=== PATIENT | male | born 1975 | race Two or more races ===

== ENCOUNTER 2024-11-26 11:11 | Outpatient (AMB) | payer OTHER, SELFPAY ==
--- NOTE | 2024-11-26 11:12 | MHC.OFFVIS ---
Vital Signs 11/26/24 11:14 Height 5 ft 8 in Weight 162 lb 8 oz BMI 24.7 BP 122/80 Blood Pressure Location Lt brachial Position Sitting Pulse 87 Pulse Source Pulse Oximeter Pulse Oximetry (%) 96 Oxygen Delivery Method Room Air Intake Visit Reasons: Gout Allergies No Known Allergies Allergy (Verified 11/26/24 11:14) HPI HPI Gout: Details: He had an episode of podagra in 2011 in [place] when he was a resident. He reports that he saw a senior health consultant right away and joint was aspirated. He had crystal proven gout. He had hyperuricemia approx 10 and was started on allopurinol and colchicine. He remained on allopurinol for a year. He then discontinued it on his own. Subsequently had another episode of toe swelling in 2016 involving his left 2nd or 3rd toe. He initially used NSAIDs be then treated it with a steroid course. In May he had an episode of left 2nd toe swelling treated with a course of Decadron 4 mg daily for a few days until joint swelling resolved. His colleague prescribed Decadron. A few weeks ago he had an episode of toe swelling involving his left 2nd toe with pain in his left 3rd toe. He took aleve, colchicine and left ovary Decadron that he had 4 mg b.i.d. for 3 days. Swelling and pain resolved. He has not had any other joint involvement. He reports that each time he has had swelling in his joint it has coincided with a period of stress in his life. No specific trigger. He follows in [place] diet. 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 Managed with diet and exercise. Labs from 09/08/2024 reviewed. [facility] Medical History (Updated 11/26/24 @ 12:57 by Mick Bowden MD) NORMAN (obstructive sleep apnea) Hypertriglyceridemia Fatty liver Gout Surgical History H/O esophagogastroduodenoscopy Physical Exam Vital Signs: Last Vital Signs Pulse 87 11/26/24 11:14 BP 122/80 11/26/24 11:14 Pulse Ox 96 11/26/24 11:14 Oxygen Delivery Method Room Air 11/26/24 11:14 BMI result Body Mass Index 24.7 Const Other: General: Comfortable CVS: RRR Respiratory: clear to auscultation bilaterally. Good respiratory effort Skin: He has hyperpigmentation on a few DIPJ he has bilateral MSK: No tenderness of any joints. No synovitis. No dactylitis. Good range of motion of upper extremities and lower extremities. Assessment & Plan Assessment & Plan (1) Gout: Comment: Crystal proven 2011 when he had an episode of podagra. Subsequently he has had swelling of his left 2nd+/-3rd toe. He recently had an episode, which he self-treated. At this time he is asymptomatic. Recent labs from 09/08/2024 reveal hyperuricemia with mild transaminitis (history of hepatic steatosis wit fluctuating mild transaminitis). I have recommended that he repeat labs this visit. If appropriate, I will then start allopurinol and colchicine. Code(s): M10.9 - Gout, unspecified Category: Medical Qualifiers: Gout site: unspecified site Gout etiology: idiopathic Chronicity: chronic Presence of tophus: without tophus Qualified Code(s): M1A.00X0 - Idiopathic chronic gout, unspecified site, without tophus (tophi) Plan: Labs ordered X-ray bilateral feet ordered ? Gouty arthritis Return to clinic in 3 months (2) Joint swelling: Comment: Resolved Code(s): M25.40 - Effusion, unspecified joint Category: Medical Plan: See above Orders: Orders Aspartate Amino Transferase Today M10.9 - Gout, unspecified Creatinine Today M10.9 - Gout, unspecified Rheumatoid Factor Today M10.9 - Gout, unspecified, M25.40 - Effusion, unspecified joint Uric Acid Today M10.9 - Gout, unspecified Complete Blood Count Auto Diff Today M10.9 - Gout, unspecified Alanine Aminotransferase Today M10.9 - Gout, unspecified Cyclic Citrullinated Peptide Today M10.9 - Gout, unspecified, M25.40 - Effusion, unspecified joint XR foot LT 2V Today M10.9 - Gout, unspecified XR foot RT 2V Today M10.9 - Gout, unspecified, M25.40 - Effusion, unspecified joint Coding Level of Care Code New Pt Level 4 (24151) Diagnoses Idiopathic chronic gout without tophus, unspecified site M1A.00X0 Gout site: unspecified site Gout etiology: idiopathic Chronicity: chronic Presence of tophus: without tophus Joint swelling M25.40
[2024-11-26 11:14] VITALS: BP 122/80; PULSE 87; O2SAT 96; BMI 24.7
== END 2024-11-26 12:05 | disposition home or self-care (01) ==
PROVIDERS: Visit Provider Internal Medicine Rheumatology
DX: M1A.00X0 Idiopathic chronic gout, unspecified site, without tophus (tophi) (principal); M25.40 Effusion, unspecified joint
CPT/HCPCS: 99204

== ENCOUNTER 2025-04-16 14:35 | Outpatient (AMB) | payer OTHER, SELFPAY ==
--- NOTE | 2025-04-16 14:38 | A.OFFVIS_ITS ---
Vital Signs 04/16/25 14:39 Height 5 ft 8 in Weight 162 lb 4.163 oz BMI 24.7 BP 106/90 H Blood Pressure Location Lt brachial Position Sitting Pulse 85 Pulse Source Pulse Oximeter Pulse Oximetry (%) 95 Oxygen Delivery Method Room Air Intake Visit Reasons: 3 mo follow up Intake Note: Patient presents today for a gout follow up. Allergies No Known Allergies Allergy (Verified 04/16/25 14:39) HPI HPI 3 mo follow up: Details: He continues to have pain and stiffness constantly right 2nd MTP. He has unable to flex his 2nd right toe as much as his left. 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 No new joint pain or swelling. He started allopurinol 100 mg daily sent to him from [facility]. [facility] Medical History NORMAN (obstructive sleep apnea) Hypertriglyceridemia Fatty liver Gout Surgical History H/O esophagogastroduodenoscopy Physical Exam Vital Signs: Last Vital Signs Pulse 85 04/16/25 14:39 BP 106/90 H 04/16/25 14:39 Pulse Ox 95 04/16/25 14:39 Oxygen Delivery Method Room Air 04/16/25 14:39 BMI result Body Mass Index 24.7 Const Other: Skin: He has hyperpigmentation on a few DIPJ MSK: Tender right 2nd MTP with soft tissue swelling. He has increase flexion of left toe compared to the right side. No dactylitis. Normal range of motion of upper extremities and lower extremities. Results Reviewed Results Reviewed: X-ray bilateral feet November 2024 normal. Assessment & Plan Assessment & Plan (1) Gout: Comment: Crystal proven 2011 when he had an episode of podagra. Subsequently he has had swelling of his left 2nd+/-3rd MTP and toe, which is atypical joint distribution for gout. I had started workup for inflammatory arthritis in November but complete results were not sent to our office. He continues to have chronic soft tissue swelling of left 2nd MTP since May 2024. We discuss long-term consequences of chronic synovitis/soft tissue swelling contributing to erosive gout. He has mild transaminitis on labs from August 2024 and November 2023 (history of hepatic steatosis with fluctuating mild transaminitis). He started allopurinol 2 months ago. Uric acid goal is less than 6. Code(s): M10.9 - Gout, unspecified Category: Medical Qualifiers: Gout site: unspecified site Gout etiology: idiopathic Chronicity: chronic Presence of tophus: without tophus Qualified Code(s): M1A.00X0 - Idiopathic chronic gout, unspecified site, without tophus (tophi) Plan: Labs for drug monitoring on allopurinol and uric acid level ordered for patient to do at his local lab per patient's request I am requesting rheumatoid factor and anti CCP antibody lab results 11/2024 [facility]. If his uric acid level is greater than 6, I will start colchicine 0.6 mg daily for gout prophylaxis while he is on allopurinol Continue allopurinol 100 mg daily Prednisone course prescribed Return to clinic in 6 months Orders: Orders Uric Acid Today M1A.00X0 - Idiopathic chronic gout, unspecified site, without tophus (tophi) Alanine Aminotransferase Today M1A.00X0 - Idiopathic chronic gout, unspecified site, without tophus (tophi) Aspartate Amino Transferase Today M1A.00X0 - Idiopathic chronic gout, unspecified site, without tophus (tophi) Creatinine Today M1A.00X0 - Idiopathic chronic gout, unspecified site, without tophus (tophi) Medications: New prednisone Take 4 tablets daily for 3 days, 3 tablets daily for 3 days, 2 tablets daily for 3 days, 1 tablet daily for 3 days then stop. Take prednisone with food. 5 mg PO DIRECTED 30 tabs 0RF Coding Level of Care Code Est Pt Level 4 (37251) Complex EM visit Add On G2211 Diagnoses Idiopathic chronic gout without tophus, unspecified site M1A.00X0 Gout site: unspecified site Gout etiology: idiopathic Chronicity: chronic Presence of tophus: without tophus
[2025-04-16 14:39] VITALS: BP 106/90; PULSE 85; O2SAT 95; BMI 24.7
--- OUTSIDE RECORDS SUMMARY | 2025-04-16 15:27 | XMS_ITS | Clinical Summary ---
Author Organization [facility] Address [address] [place] [address] Care Team Providers Care Marketing Services Rep Name Role Phone Unavailable Primary Care Provider Unavailabl e Social History Tobacco Use Types Packs/Day Years Used Date Smoking Tobacco: Never Assessed Sex and Gender Information Value Date Recorded Sex Assigned at Not on file Legal Sex Male 12:27 PM EDT Gender Identity Not on file Sexual Orientation Not on file Plan of Treatment Health Maintenance Due Date Last Done Comments Hepatitis C Virus Screening 1976 HIV Screening 1989 DTaP/Tdap/Td Vaccines (1 - Tdap) 1995 Hepatitis B Vaccines (1 of 3 - 19+ 3-dose series) 1995 Colonoscopy 2021 COVID-19 Vaccine ( - 2023-2 5 season) 2024 Influenza Vaccine 06/20/2025 Pneumococcal Vaccine: Pediat siena (0-5 Years) and At-Risk Patients (6 to 49 Years) Aged Out No longer eligible b ased on patient's age to complete this topic Insurance [facility]
== END 2025-04-16 15:25 | disposition home or self-care (01) ==
LOC: HO.RHES 14:35
PROVIDERS: Visit Provider Internal Medicine Rheumatology
DX: M1A.00X0 Idiopathic chronic gout, unspecified site, without tophus (tophi) (principal)
CPT/HCPCS: 99214